=== PATIENT | female | born 1995 | race American Indian/Alaskan Native ===

== ENCOUNTER 2017-09-02 19:40 | Emergency (ER) | payer SELFPAY ==
[2017-09-02] MEDS ORDERED: TYLENOL PO ONE (20:20)
[2017-09-02] MEDS ORDERED: TYLENOL ONE (20:24)
[2017-09-02 21:10] LABS: Basophils % (Auto) 0.3 % (0.0-1.8); Eosinophils % (Auto) 0.1 % (0.0-4.3); Hematocrit 34.2 % (30.3-42.9); Mean Corpuscular HGB Conc 32 % (30-34); Mean Corpuscular Volume 79 fl (79-97); Platelet Count 218 K/mm3 (140-440); Red Blood Count 4.33 M/mm3 (3.65-5.03); Red Cell Distribution Width 18.5 % (13.2-15.2)
[2017-09-02 21:17] LABS: Mean Corpuscular Hemoglobin 25 pg (28-32)
[2017-09-02 21:20] LABS: Alanine Aminotransferase 7 units/L (7-56); Albumin 4.5 g/dL (3.9-5); Albumin/Globulin Ratio 1.6 %; Alkaline Phosphatase 64 units/L (35-129); Anion Gap 20 mmol/L; BUN/Creatinine Ratio 14; Blood Urea Nitrogen 10 mg/dL (7-17); Calcium 8.8 mg/dL (8.4-10.2); Carbon Dioxide 22 mmol/L (22-30); Chloride 98.2 mmol/L (98-107); Glucose 102 mg/dL (65-100); Lipase 24 units/L (13-60); Sodium 136 mmol/L (137-145); Total Protein 7.3 g/dL (6.3-8.2)
--- NOTE | 2017-09-03 01:57 | Emergency Department Report ---
HPI - General Chief Complaint: Abdominal Pain Time Seen by Provider: 09/03/17 00:32 - HPI HPI: This is a 22 year-old female presents to the emergency department with complaint of some generalized abdominal pain and also previously a 2 day history of some left flank pain. She says that the flank pain has since resolved. She also complains of some constipation and feels that maybe this is the cause of her discomfort. She had similar symptoms about 1 month ago and was seen at [facility] was found to have a small bowel obstruction and a kidney infection. She does present with a fever. She denies any nausea, vomiting, diarrhea. She has not taken anything for her symptoms prior to presentation. She does not have a primary care physician. No recent travel or sick contacts at home. She denies any dysuria, vaginal bleeding, vaginal discharge. ED Past Medical Hx - Past Medical History Previous Medical History?: Yes Additional medical history: small bowel obstruction 2016 - Surgical History Past Surgical History?: Yes - Social History Smoking Status: Never Smoker Substance Use Type: None - Medications Home Medications: Home Medications Medication Instructions Recorded Confirmed Last Taken Type Ciprofloxacin HCl [Ciprofloxacin 500 mg PO BID #14 tablet 09/03/17 Unknown Rx TAB] ED Review of Systems ROS: Stated complaint: FEVER Other details as noted in HPI Comment: All other systems reviewed and negative Constitutional: fever. denies: weakness Eyes: denies: eye pain, eye discharge, vision change ENT: denies: ear pain, throat pain Respiratory: denies: cough, shortness of breath, wheezing Cardiovascular: denies: chest pain, palpitations Gastrointestinal: abdominal pain, constipation Genitourinary: denies: urgency, dysuria, discharge Musculoskeletal: denies: joint swelling, arthralgia Skin: denies: rash, lesions Neurological: denies: headache, weakness, paresthesias Physical Exam - Physical Exam Vital Signs: Vital Signs 09/02/17 09/02/17 09/03/17 20:15 20:23 00:35 Temperature 102.8 F H Pulse Rate 127 H Respiratory 18 18 18 Rate Blood Pressure 117/73 O2 Sat by Pulse 100 Oximetry 09/03/17 09/03/17 09/03/17 01:39 01:46 01:54 Temperature 100.8 F H Pulse Rate 104 H Respiratory 21 Rate Blood Pressure 113/65 O2 Sat by Pulse 99 98 Oximetry Physical Exam: GENERAL: The patient is well-developed well-nourished. HENT: Normocephalic. Atraumatic. Patient has moist mucous membranes. EYES: Extraocular motions are intact. Pupils equal reactive to light bilaterally. NECK: Supple. Trachea is midline. CHEST/LUNGS: Clear to auscultation. There is no respiratory distress noted. HEART/CARDIOVASCULAR: Regular. There is mild tachycardia. There is no gallop rub or murmur. ABDOMEN: Abdomen is soft. Unable to reproduce abdominal tenderness to palpation. Patient has normal bowel sounds. There is no abdominal distention. SKIN: Skin is warm and dry. NEURO: The patient is awake, alert, and oriented. The patient is cooperative. The patient has no focal neurologic deficits. The patient has normal speech. MUSCULOSKELETAL: There is no tenderness or deformity. There is no limitation range of motion. There is no evidence of acute injury. ED Course Vital Signs 09/02/17 09/02/17 09/03/17 20:15 20:23 00:35 Temperature 102.8 F H Pulse Rate 127 H Respiratory 18 18 18 Rate Blood Pressure 117/73 O2 Sat by Pulse 100 Oximetry 09/03/17 09/03/17 09/03/17 01:39 01:46 01:54 Temperature 100.8 F H Pulse Rate 104 H Respiratory 21 Rate Blood Pressure 113/65 O2 Sat by Pulse 99 98 Oximetry ED Medical Decision Making - Lab Data Result diagrams: 09/02/17 20:38 09/02/17 20:38 - Radiology Data Radiology results: report reviewed, image reviewed interpreted by me: Abdominal x-ray shows nonspecific nonobstructive bowel gas. EXAM: CT ABDOMEN PELVIS W CON HISTORY: Abd pain TECHNIQUE: CT images are acquired through the Abdomen and Pelvis in cortical medullary and delayed excretory phases following intravenous administration of contrast. Transaxial, coronal and sagittal reformations are provided. PRIORS: None FINDINGS: Partially visualized intrathoracic contents are unremarkable. The liver, gallbladder, pancreas, spleen, and adrenal glands are unremarkable. There is focal heterogeneous hypoenhancement in the upper pole of the left kidney best demonstrated on axial series 3, image 39 and axial series 4, image 21. No hydroureteronephrosis or nephrolithiasis. No stones in the urinary bladder. At the left lateral aspect of the urinary bladder there is a 3.6 x 4 cm peripherally enhancing fluid structure. Anteverted uterus. Small volume of free fluid in the pelvis. Small and large bowel are normal in caliber. No acute appendicitis. No free air, free fluid, or lymphadenopathy identified. Aorta is normal in course and caliber. Superficial soft tissues are unremarkable. Umbilical jewelry is noted. No acute or aggressive appearing skeletal findings. IMPRESSION: Heterogeneous enhancement of the left upper kidney is most concerning for pyelonephritis. Correlation with relevant laboratory values is requested. Left pelvic cystic structure measuring up to 4 cm is most likely adnexal in origin. Pelvic ultrasound is suggested for better evaluation. Transcribed By: MARCIANO Dictated By: OSACR BARRAZA MD Electronically Authenticated By: OSCAR BARRAZA MD Signed Date/Time: 09/03/17 0043 - Medical Decision Making 22-year-old female presents with some abdominal pain, and previously left-sided flank pain. She has a fever here so she was given some Tylenol and eventually Toradol and upon reevaluation her fever has resolved. She has some mild tachycardia but once the fever has resolved the tachycardia also resolved. Labs show a urinary tract infection. There is no leukocytosis or renal insufficiency. Abdominal x-ray shows nonspecific nonobstructive bowel gas. CT scan of the abdomen and pelvis was done that came back showing concern for left- sided pyelonephritis. She was given a dose of Rocephin. Patient was reevaluated multiple times over multiple hours and is resting comfortably and says that she is feeling much better and asking for discharge home. We will attempt to treat her outpatient with Cipro and she will be given referrals for primary care. She will return to the ER with any intractable fever, development of nausea and vomiting, worsening of her symptoms or any acute distress. Discharge instructions were given while she was in the emergency department and all of her questions have been answered. - Differential Diagnosis UTI, pyelonephritis, ovarian cyst, nephrolithiasis Critical Care Time: No Critical care attestation.: If time is entered above; I have spent that time in minutes in the direct care of this critically ill patient, excluding procedure time. ED Disposition Clinical Impression: Pyelonephritis UTI (urinary tract infection) Qualifiers: Urinary tract infection type: acute cystitis Hematuria presence: without hematuria Qualified Code(s): N30.00 - Acute cystitis without hematuria Disposition: TO HOME OR SELFCARE Is pt being admited?: No Condition: Stable Instructions: Acute Pyelonephritis (ED) Additional Instructions: Please follow up with a primary care physician in the next few days. Return to the emergency Department with any worsening of your symptoms or any acute distress. You can use Tylenol every 4 hours and ibuprofen every 6 hours, using weight-based dosing, as needed for fever or discomfort. Take the antibiotics as prescribed. Prescriptions: Ciprofloxacin HCl [Ciprofloxacin TAB] 500 mg PO BID #14 tablet Referrals: PRIMARY CAREMD [Primary Care Provider] - 3-5 Days ASHANTI ARORA MD [Staff Physician] - 3-5 Days OSCAR KRAMER MD [Staff Physician] - 3-5 Days [facility] [Outside] - 3-5 Days Time of Disposition: 05:01
[2017-09-03] MEDS ORDERED: TORADOL IV ONE (01:58)
[2017-09-03 02:02] LABS: Bilirubin,Urine NEG (Negative); Blood,Urine NEG (Negative); Ketones,Urine 20 mg/dL (Negative); Leukocyte Esterase,Urine LG (Negative); Mucus,Urine FEW /HPF; Nitrite,Urine NEG (Negative)
[2017-09-03] MEDS ORDERED: ROCEPHIN/NS 1 GM/50 ML 1 GM/50 ML BAG IV ONE (02:16)
--- NOTE | 2017-09-03 03:12 | XRay Report ---
FINAL REPORT PROCEDURE: XR ABDOMEN 2V TECHNIQUE: Abdominal radiograph, single supine AP view. HISTORY: Abd pain COMPARISON: No prior studies are available for comparison. FINDINGS: Bowel gas pattern:Nonobstructive. Masses or calcifications:None. Bony structures:No significant abnormality. Other:None. IMPRESSION: No acute abnormality
--- NOTE | 2017-09-03 04:46 | Cat Scan Report ---
FINAL REPORT EXAM: CT ABDOMEN PELVIS W CON HISTORY: Abd pain TECHNIQUE: CT images are acquired through the Abdomen and Pelvis in cortical medullary and delayed excretory phases following intravenous administration of contrast. Transaxial, coronal and sagittal reformations are provided. PRIORS: None FINDINGS: Partially visualized intrathoracic contents are unremarkable. The liver, gallbladder, pancreas, spleen, and adrenal glands are unremarkable. There is focal heterogeneous hypoenhancement in the upper pole of the left kidney best demonstrated on axial series 3, image 39 and axial series 4, image 21. No hydroureteronephrosis or nephrolithiasis. No stones in the urinary bladder. At the left lateral aspect of the urinary bladder there is a 3.6 x 4 cm peripherally enhancing fluid structure. Anteverted uterus. Small volume of free fluid in the pelvis. Small and large bowel are normal in caliber. No acute appendicitis. No free air, free fluid, or lymphadenopathy identified. Aorta is normal in course and caliber. Superficial soft tissues are unremarkable. Umbilical jewelry is noted. No acute or aggressive appearing skeletal findings. IMPRESSION: Heterogeneous enhancement of the left upper kidney is most concerning for pyelonephritis. Correlation with relevant laboratory values is requested. Left pelvic cystic structure measuring up to 4 cm is most likely adnexal in origin. Pelvic ultrasound is suggested for better evaluation.
[2017-09-03 04:51] VITALS: BP 106/68
== END 2017-09-03 05:53 | disposition home or self-care (01) ==
LOC: ED 19:40
DX: N39.0 Urinary tract infection, site not specified (principal); N12 Tubulo-interstitial nephritis, not specified as acute or chronic
CPT/HCPCS: 36415; 74020; 74177; 80053; 81001; 83690; 84703; 85025; 96365; 96375; 99285; J0696; J1885; Q9967

== ENCOUNTER 2022-01-31 09:29 | Emergency (ER) | payer OTHER ==
[2022-01-31 10:12] VITALS: BP 104/65
--- NOTE | 2022-01-31 10:50 | XRay Report ---
RIGHT HAND, 3 VIEWS INDICATION / CLINICAL INFORMATION: hand injury. COMPARISON: None available. FINDINGS: No fracture or dislocation. No soft tissue abnormality. Specifically, the fourth digit is unremarkabl e. IMPRESSION: No acute osseous abnormality. Signer Name: Aidee Matamoros MD Signed: 01/31/2022 10:46 AM Workstation Name: [id number]
[2022-01-31] MEDS ORDERED: KETOROLAC 10 MG TAB PO ONE (11:11)
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
== END 2022-01-31 11:35 | disposition home or self-care (01) ==
LOC: ED 09:29
DX: S61.304A Unspecified open wound of right ring finger with damage to nail, initial encounter (principal); X58.XXXA Exposure to other specified factors, initial encounter; Y93.89 Activity, other specified; Y92.89 Other specified places as the place of occurrence of the external cause; Y99.8 Other external cause status
CPT/HCPCS: 99283